=== PATIENT | female | born 1980 | race Hispanic/Latino ===

== ENCOUNTER 2018-07-03 11:05 | Emergency (ER) | payer BC ==
[2018-07-03 11:57] LABS: BASOPHILS % (AUTO) 0.5 % (0.0-5.0); EOSINOPHILS % (AUTO) 1.5 % (0.0-8.0); HEMATOCRIT 42.4 % (36-48); LYMPHOCYTES % (AUTO) 35.1 % (21.0-51.0); MEAN CORPUSCULAR HEMOGLOBIN 29.8 pg (27.0-33.0); MEAN CORPUSCULAR HGB CONC 32.8 g/dL (32.0-36.0); MEAN CORPUSCULAR VOLUME 90.8 fL (79-99); MONOCYTES % (AUTO) 6.3 % (3.0-13.0); NEUTROPHILS % (AUTO) 56.6 % (40.0-77.0); NUCLEATED RED BLOOD CELLS 0.1 % (0.0-0.19); PLATELET COUNT (AUTO) 302 K/uL (130-400); RED BLOOD CELL COUNT(AUTO) 4.67 MIL/uL (4.00-5.50); RED CELL DISTRIBUTION WIDTH 13.9 % (11.0-15.5); WHITE BLOOD COUNT (AUTO) 5.8 K/uL (4.8-10.8)
[2018-07-03 12:06] LABS: CREATININE 0.8 mg/dL (0.5-1.5); POTASSIUM 4.3 mmol/L (3.5-5.1)
[2018-07-03 12:10] LABS: ALBUMIN 3.9 g/dL (3.5-5.0); BILIRUBIN,TOTAL 0.7 mg/dL (0.2-1.0); TOTAL PROTEIN, SERUM 7.2 g/dL (6.0-8.3)
[2018-07-03 12:11] LABS: INR 0.95 (0.85-1.15); PARTIAL THROMBOPLASTIN TIME 28.2 SEC (26.3-35.5)
[2018-07-03 13:12] LABS: HCG,QUAL RESULT NEGATIVE (NEGATIVE)
[2018-07-03 13:17] LABS: APPEARANCE,URINE Clear (CLEAR); BILIRUBIN,URINE Negative (NEGATIVE); COLOR,URINE Yellow (YELLOW); GLUCOSE, URINE (UA) Negative (NEGATIVE); KETONES,URINE Negative (NEGATIVE); LEUKOCYTE ESTERASE ,URINE Negative (NEGATIVE); NITRATE,URINE Negative (NEGATIVE); OCCULT BLOOD,URINE Negative (NEGATIVE); PH,URINE 5.5 (5.0-8.0); PROTEIN,URINE Negative (NEGATIVE); UROBILINOGEN,URINE 0.2 mg/dL (0.2-1.0)
[2018-07-03] MEDS ORDERED: KETOROLAC TROMETHAMINE 30MG/ML ONE (14:52)
[2018-07-03] MEDS ORDERED: METHYLPREDNISOLONE SOD SUCC 125MG/2ML VIAL ONE (14:52)
[2018-07-03] MEDS ORDERED: TRAMADOL HCL 50 MG TABLET ONE (15:42)
== END 2018-07-03 17:08 | disposition home or self-care (01) ==
LOC: EDH 11:05
DX: M51.9 Unspecified thoracic, thoracolumbar and lumbosacral intervertebral disc disorder (principal); M54.16 Radiculopathy, lumbar region
CPT/HCPCS: 36415; 72100; 80053; 81003; 81025; 82150; 82550; 83690; 85025; 85610; 85730; 93005; 96374; 96375; 99285; J1885; J2930

== ENCOUNTER 2018-07-07 15:00 | Observation (INO) | payer BC ==
[~2018-07-07] VITALS: Ht 180.3 cm; Wt 80.5 kg
[2018-07-07 16:23] LABS: BASOPHILS % (AUTO) 0.6 % (0.0-5.0); EOSINOPHILS % (AUTO) 2.6 % (0.0-8.0); HEMATOCRIT 42.8 % (36-48); LYMPHOCYTES % (AUTO) 31.4 % (21.0-51.0); MEAN CORPUSCULAR HEMOGLOBIN 30.2 pg (27.0-33.0); MEAN CORPUSCULAR HGB CONC 33.3 g/dL (32.0-36.0); MEAN CORPUSCULAR VOLUME 90.8 fL (79-99); MONOCYTES % (AUTO) 5.3 % (3.0-13.0); NEUTROPHILS % (AUTO) 60.1 % (40.0-77.0); NUCLEATED RED BLOOD CELLS 0.1 % (0.0-0.19); PLATELET COUNT (AUTO) 330 K/uL (130-400); RED BLOOD CELL COUNT(AUTO) 4.71 MIL/uL (4.00-5.50); RED CELL DISTRIBUTION WIDTH 13.8 % (11.0-15.5); WHITE BLOOD COUNT (AUTO) 6.2 K/uL (4.8-10.8)
[2018-07-07 16:27] VITALS: BP 125/68
[2018-07-07] MEDS ORDERED: TRAM50TA4 PO (16:41)
[2018-07-07] MEDS ORDERED: NAPR-1023 PO (16:41)
[2018-07-07] MEDS ORDERED: KETO15CR2 TP (16:41)
[2018-07-07 16:46] LABS: POTASSIUM 4.4 mmol/L (3.5-5.1)
[2018-07-09] VITALS (22 sets, daily range): BP systolic 92–148; BP diastolic 44–89
[2018-07-09] MEDS ORDERED: LACTATED RINGERS 1000ML 1,000 ML IV ONE (07:28)
[2018-07-09] MEDS ORDERED: CEFAZOLIN SODIUM 1 GM VIAL IVP ONE (08:00)
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
--- NOTE | 2018-07-09 08:11 | NUR ---
NAME CORRECTION: ROJELIO CISNEROS, DEPUTY REGISTER OF DEEDS.
[2018-07-09] MEDS ORDERED: LIDOCAINE PF 2% 5ML ABBOJECT ONE (09:27)
[2018-07-09] MEDS ORDERED: SUCCINYLCHOLINE 200MG/10ML SYR ONE ×2 (09:27→11:59)
[2018-07-09] MEDS ORDERED: ONDANSETRON HCL 4 MG/2 ML VIAL ONE (09:28)
[2018-07-09] MEDS ORDERED: GLYCOPYRROLATE 1 MG/5 ML SYRINGE ONE ×2 (09:28→09:34)
[2018-07-09] MEDS ORDERED: NEOSTIGMINE 5MG/5ML SYR IV ONE (09:28)
[2018-07-09] MEDS ORDERED: PROPOFOL 10 MG/ML 20ML VIAL IV ONE (09:28)
[2018-07-09] MEDS ORDERED: DEXAMETHASONE SOD PHOSPHATE 10MG/ML 1ML VIAL ONE (09:28)
[2018-07-09] MEDS ORDERED: ROCURONIUM 10MG/1ML SYR 10 MG/ML ML ONE ×2 (09:28→12:00)
[2018-07-09] MEDS ORDERED: MIDAZOLAM HCL 1 MG/ML 2ML VIAL ONE ×2 (09:28→10:50)
[2018-07-09] MEDS ORDERED: FENTANYL CITRATE PF 50 MCG/1 ML 2ML VIAL ONE ×2 (09:30→11:35)
[2018-07-09] MEDS ORDERED: LIDOCAINE HCL 4% LTA SOL 4 ML VIAL ONE (09:33)
[2018-07-09] MEDS ORDERED: BUPIVACAINE/EPI/PF 0.25% 50 ML VIAL ONE (10:50)
[2018-07-09] MEDS ORDERED: THROMBIN-JMI 20000 UNIT KIT TP ONE (10:51)
[2018-07-09] MEDS ORDERED: DURAMORPH PF1 MG/ML 10ML AMP IV ONE (10:51)
[2018-07-09] MEDS ORDERED: BACITRACIN 50,000 UNIT VIAL ONE (10:51)
[2018-07-09] MEDS ORDERED: GENTAMICIN SULFATE 80 MG/2 ML VIAL ONE (11:55)
[2018-07-09] MEDS ORDERED: SODIUM CHLORIDE 0.9% 10 ML VIAL IVP PRN (12:15)
[2018-07-09] MEDS ORDERED: TRAMADOL HCL 50 MG TABLET PO PRN (12:15)
[2018-07-09] MEDS: CEFAZOLIN SODIUM 1 GM VIAL IVP SCH ×2 (12:15→18:41)
[2018-07-09] MEDS ORDERED: PROMETHAZINE HCL 25 MG/ML 1ML AMPULE IM PRN (12:15)
[2018-07-09] MEDS: DEXAMETHASONE SOD PHOSPHATE 4 MG/ML 1ML VIAL IVP SCH ×2 (12:15→18:41)
[2018-07-09] MEDS ORDERED: MORPHINE SULFATE 2 MG/ML 1ML SYG IVP PRN (12:15)
[2018-07-09] MEDS ORDERED: MEPERIDINE-PF 25 MG/ML SYG ONE (12:31)
[2018-07-09] MEDS: LACTATED RINGERS 1000ML 1,000 ML IV SCH (13:40)
[2018-07-09] MEDS: HYDROCODONE/ACETAMINOPHEN 5/325 MG TAB PO PRN ×2 (18:41→22:34)
[2018-07-09] MEDS ORDERED: KETOCONAZOLE 15 GM CREAM.GM. TP SCH (21:00)
[2018-07-09] MEDS: NAPROXEN 500 MG TABLET PO SCH (21:34)
[2018-07-10 00:05] VITALS: BP 116/75
[2018-07-10] MEDS: DEXAMETHASONE SOD PHOSPHATE 4 MG/ML 1ML VIAL IVP SCH ×2 (00:38→05:51)
[2018-07-10 04:10] VITALS: BP 125/71
[2018-07-10] MEDS: CEFAZOLIN SODIUM 1 GM VIAL IVP SCH ×2 (04:28→08:14)
[2018-07-10] MEDS: LACTATED RINGERS 1000ML 1,000 ML IV SCH ×2 (04:37→08:14)
[2018-07-10] MEDS: HYDROCODONE/ACETAMINOPHEN 5/325 MG TAB PO PRN (04:42)
[2018-07-10 08:00] VITALS: BP 125/77
[2018-07-10] MEDS: NAPROXEN 500 MG TABLET PO SCH (08:40)
[2018-07-10 11:45] VITALS: BP 109/46
== END 2018-07-10 12:43 | disposition home or self-care (01) ==
LOC: EDSTATUS 15:00 → DAHIP 07-09 05:42 → 4CH 07-09 13:59
PROVIDERS: ADMIT Neurological Surgery; ATTEND Neurological Surgery
DX: M51.17 Intervertebral disc disorders with radiculopathy, lumbosacral region (principal)
CPT/HCPCS: 36415; 63030; 71045; 72020; 80051; 84703; 85025; 93005; 96374; 96375; 96376; A4218 ×2; A4344; A4649 ×3; G0378 ×32; J0330 ×2; J0690 ×3; J1100 ×4; J1580; J2001; J2175; J2250 ×2; J2274; J2405; J2704; J2710; J3010 ×2; J3490 ×3; J7030; J7120 ×4